=== PATIENT | male | born 1990 | race Caucasian/White ===

== ENCOUNTER 2019-03-30 11:33 | Emergency (ER) | payer OTHER ==
[~2019-03-30] VITALS: Ht 177.8 cm; Wt 154.4 kg
[~2019-03-30 11:33] MED LIST: CEPH-443 PO; IBUP-1542 PO
[2019-03-30 11:38] VITALS: BP 141/77; PULSE 98; RESP 17; Ht 177.8 cm; Wt 154.4 kg
== END 2019-03-30 14:54 | disposition home or self-care (01) ==
LOC: FTE 11:33
DX: N30.91 Cystitis, unspecified with hematuria (principal); D64.9 Anemia, unspecified
CPT/HCPCS: 36415; 80053; 81003; 83690; 85025; 87086; 96372; 99284; J0696